=== PATIENT | male | born 2000 | race Two or more races ===

== ENCOUNTER 2024-09-16 19:50 | Emergency (ER) | payer OTHER ==
[~2024-09-16] VITALS: Ht 157.5 cm; Wt 68.0 kg
[2024-09-16 20:14] VITALS: BP 138/75; TEMP 97.7; O2SAT 98
[2024-09-16] MEDS ORDERED: POLY10DR OP (22:26)
== END 2024-09-16 22:45 | disposition home or self-care (01) ==
LOC: ER 19:57
DX: H10.9 Unspecified conjunctivitis (principal)